=== PATIENT | female | born 1980 | race Caucasian/White ===

== ENCOUNTER 2016-09-23 18:50 | Emergency (ER) | payer OTHER ==
[2016-09-23] MEDS ORDERED: HYDROcodone/ACETAMIN 5-325 MG* 1 TAB PO ONE ×2 (19:36→21:18)
[2016-09-23] MEDS ORDERED: Ketorolac INJ* 60 MG/2 ML VIAL IM ONE (19:44)
[2016-09-23 20:39] VITALS: BP 99/55
--- NOTE | 2016-09-23 20:52 | RAD ---
Indication: Back pain, dysuria. CT of the abdomen and pelvis was performed without oral or IV contrast administration. Coronal and sagittal reconstructed images were obtained. The lung bases demonstrate no pleural fluid, nodules or masses. Heart is of normal size without evidence of pericardial effusion. Liver is normal in size. No focal lesions or intrahepatic ductal dilatation is noted. The gallbladder demonstrates no calcified gallstones. No pericholecystic fluid or wall thickening is identified. Common duct is not dilated. Pancreas demonstrates no mass or pancreatic duct dilatation. No adrenal lesions are noted. The kidneys demonstrate multiple renal calculi. Left kidney demonstrates multiple renal calculi the largest in the lower pole of left kidney measuring 5 mm. There is a calculi in the distal ureter just above the ureteropelvic junction up to 2 mm. There is fullness of the left renal collecting system. The right kidney demonstrates nonobstructing calculi in the right kidney. No dilated loops of bowel are noted. No retroperitoneal adenopathy is noted. The colon is filled with stool. The uterus and ovaries are unremarkable. Aorta and inferior vena cava are unremarkable. No dilated small bowel or colon is filled with stool. IMPRESSION: MULTIPLE LEFT RENAL CALCULI WITH AN ADDITIONAL CALCULI IN THE LEFT URETEROVESICULAR JUNCTION MEASURING 2 MM WITH MILD FULLNESS OF THE LEFT RENAL COLLECTING SYSTEM. TINY CALCULI ARE NOTED IN THE RIGHT KIDNEY.
[2016-09-23] MEDS ORDERED: Tamsulosin CAP* 0.4 MG PO ONE (21:18)
--- NOTE | 2016-10-09 10:49 | UC ---
Remington Hou Matthew, scribed for La NenaSangeeta DO on 09/23/16 at 1945 . Back Pain HPI - HPI Summary HPI Summary: A 36 y/o female presents to [facility] [place] with sudden constant left lower back pain since 18:00. The pain is described as sharp and radiates from the left lower back into the left flank. The pain started after the patient voided. Associated symptoms include nausea, increased urgency, and cough. The patient denies dysuria, fever, chills, chest pain, SOB, vomiting, headache, rashes, and sore throat. The patient states that she drank copious amounts of water today. FHx of kidney stones. - History of Current Complaint Chief Complaint: UCBackPain Stated Complaint: LOWER BACK & ABD PAIN Time Seen by Provider: 09/23/16 19:11 Hx Obtained From: Patient Hx Last Menstrual Period: 09/17/16 ?: No Onset/Duration: Sudden Onset, Lasting Hours, Still Present Timing: Constant Severity Initially: Moderate Severity Currently: Moderate Pain Intensity: 10 Pain Scale Used: 0-10 Numeric Back Pain: Is Discrete @ - left lower back, Radiates To - left flank Character: Sharp Aggravating: Nothing Alleviating: Nothing Associated Signs And Symptoms: Positive: Flank Pain - LT, Other - increased urgency, nausea, cough. Negative: Swelling, Redness, Bruising, Fever, Weakness , Numbness, Tingling, Bladder Incontinence, Bowel Incontinence, Weight Loss - Allergies/Home Medications Allergies/Adverse Reactions: Allergies Allergy/AdvReac Type Severity Reaction Status Date / Time No Known Allergies Allergy Verified 10/08/16 12:20 PMH/Surg Hx/FS Hx/Imm Hx Previously Healthy: Yes Endocrine History Of: Denies: Diabetes, Thyroid Disease Cardiovascular History Of: Denies: Cardiac Disorders, Hypertension Respiratory History Of: Denies: COPD, Asthma GI/ History Of: Denies: Ulcer - Surgical History Surgical History: Yes Surgery Procedure, Year, and Place: LE2005. Appendectomy - Family History Known Family History: Positive: Hypertension - Social History Lives: With Family Alcohol Use: Occasionally Substance Use Type: None Smoking Status (MU): Never Smoked Tobacco Have You Smoked in the Last Year: No Review of Systems Constitutional: Negative Skin: Negative Eyes: Negative ENT: Negative Respiratory: Cough Cardiovascular: Negative Gastrointestinal: Other - Nausea Genitourinary: Urgency - increased Motor: Negative Neurovascular: Negative Musculoskeletal: Negative Neurological: Negative Psychological: Negative All Other Systems Reviewed And Are Negative: Yes Physical Exam Triage Information Reviewed: Yes Appearance: Well-Appearing, Well-Nourished, Pain Distress - moderate Vital Signs: Initial Vital Signs Temp 98.4 F 09/23/16 19:00 Pulse 94 09/23/16 19:00 Resp 24 09/23/16 19:00 BP 95/50 09/23/16 19:00 Pulse Ox 100 09/23/16 19:00 Vital Signs Reviewed: Yes Eyes: Positive: Conjunctiva Clear. Negative: Discharge ENT: Positive: Hearing grossly normal. Negative: Muffled/hoarse voice Neck: Positive: Supple, Nontender Respiratory: Positive: Lungs clear, Normal breath sounds, No respiratory distress, No accessory muscle use Cardiovascular: Positive: RRR, No Murmur Abdomen Description: Positive: Nontender, Soft, CVA Tenderness (L), Other: - tenderness to palpation of left cva; kidney punch deferred. Negative: CVA Tenderness (R), Distended, Guarding Bowel Sounds: Positive: Present Musculoskeletal Exam: Normal Neurological: Positive: Alert, Muscle Tone Normal Psychological: Positive: Age Appropriate Behavior Skin Exam: Normal, Other - dry, normal color Diagnostics - Radiology CT A/P Xray Interpretation: Positive (See Comments) - IMPRESSION: MULTIPLE LEFT RENAL CALCULI WITH AN ADDITIONAL CALCULI IN THE LEFT URETEROVESICULAR JUNCTION MEASURING 2 MM WITH MILD FULLNESS OF THE LEFT RENAL COLLECTING SYSTEM. TINY CALCULI ARE NOTED IN THE RIGHT KIDNEY. Radiology Interpretation Completed By: Radiologist Back Pain Course/Dx - Differential Dx/Diagnosis Differential Diagnosis/HQI/PQRI: Renal Colic, Strain Provider Diagnoses: kidney stone Discharge - Discharge Plan Condition: Stable Disposition: HOME Patient Education Materials: Tamsulosin (By mouth), Kidney Stones (ED) Referrals: Bhavani Trejo MD [Primary Care Provider] - (Follow up in 3-5 days. Follow up sooner in ED if pain worsens or new symptoms develop.) Redd Asher MD [Medical Doctor] - (Follow up in 1-2 weeks.) Additional Instructions: ORAL NARCOTIC MEDICATION: You have been given a prescription for pain control. This medication is a narcotic. It's best taken with food, as nausea can result if taken on an empty stomach. Don't operate machinery or drive within six hours of taking this medication. Do not combine this medicine with alcohol, or with any medication which can cause sedation (such as cold tablets or sleeping pills) unless you get permission from the physician. Narcotics tend to cause constipation. If possible, drink plenty of fluids and eat a diet high in fiber and fruits. The documentation as recorded by the delorisibRemington singh Matthew accurately reflects the service I personally performed and the decisions made by me, Sangeeta Deutsch DO.
== END 2016-09-23 21:39 | disposition home or self-care (01) ==
LOC: UCEAST 18:50
DX: N20.0 Calculus of kidney (principal); Z32.02 Encounter for pregnancy test, result negative
CPT/HCPCS: 74176; 81003; 84702; 87086; 96372; 99212; G0463; J1885

== ENCOUNTER 2017-10-08 20:25 | Inpatient (IN) | payer OTHER ==
[2017-10-08] MEDS ORDERED: Penicillin G Potassium IV* 5,000,000 UNITS in NS 0.9% 100 ML* 100 ML IVPB ONE (22:12)
[2017-10-08] MEDS ORDERED: Betamethasone INJ* 6 MG/ML 5 ML VIAL (30 MG) IM ONE (22:12)
--- NOTE | 2017-10-08 22:26 | HP ---
General Information - General Information Maternal Age: 37 Grav: 2 Para: 0 SAB: 1 IEA: 0 Estimated Due Date: 11/13/17 Determined By: Early Ultrasound Gestational Age in Weeks and Days: 34 Weeks and 6 Days Maternal Blood Type and Rh: A Positive - Results this Serology/RPR Result: Non-Reactive Rubella Result: Non-Immune HBsAg Result: Negative HIV Result: Negative Past Medical History Delivery History: See Records Pertinent Past Medical History: See Records - depression/anxiety - on sertraline Pertinent Past Surgical History: See Records Pertinent Family History: See Records - Antepartal Records Antepartal Records: Reviewed, Uncomplicated Review of Systems Constitutional: Comfortable CV Complaint: No Respiratory: Shortness of Breath: No Gastrointestinal: No Nausea/Vomiting Genitourinary: Leaking Fluid Musculoskeletal: Contractions - mild, irregular Movement: Normal Exam Allergies/Adverse Reactions: Allergies No Known Allergies Allergy (Verified 10/08/16 12:20) Lab Values - Entire Visit: Laboratory Tests 10/08/17 20:47 Vag Amniotic Fld Detect Positive - Measurements Height: 4 ft 11 in Weight: 195 lb Weight in lbs: 195 Body Mass Index (BMI): 39.4 Pre- Weight: 162 lb Weight Gained This : 33 lbs and 0 ozs - Exam Abdomen: No Upper Quadrant Pain Breast: Breast Exam Deferred Extremities: Edema - mild b/l Heart: Normal Rhythm/Heart Sounds HEENT: No Significant Findings - Cervical Exam /-2 - Abdominal Exam Abdomen Exam: Non-Tender, Fundal Height Consistent with Dates - Membranes Membrane Status: SROM - Ultrasound/Biophysical Profile Ultrasound Status: Bedside Exam Ultrasound Findings: vertex EFM Findings - External Monitor Findings Baseline Heart Rate: 135 External Monitor Findings: Accelerations Present, No Pattern of Variable or Late Decelerations, Variability Moderate, Baseline Stable Contractions: Regular - q2-4, Mild, < 45 Seconds Assessment/Plan - Reason for Visit Reason for Visit: PROM - Obstetrical Risk Factors Obstetrical Risk Factors: GBS Unknown, - Plan Plan: Early Labor, Antibiotic Prophylaxis, Steroids - Date/Time of Admission Date of Admission: 10/08/17 Time of Admission: 10:30
[2017-10-08 23:19] LABS: ABS Basophils 0.1 10^3/ul (0-0.2); ABS Eosinophils 0.2 10^3/ul (0-0.6); ABS Lymphocytes 3.3 10^3/ul (1.0-4.8); ABS Monocytes 0.9 10^3/ul (0-0.8); ABS Neutrophils 10.7 10^3/ul (1.5-7.7); ABS Nucleated RBC 0 10^3/ul; Eosinophil % 1.1 % (0-6); Hematocrit 37 % (35-47); Hemoglobin 12.6 g/dl (12.0-16.0); Lymphocyte % 22.1 % (25-47); Mean Corpuscular HGB Conc 34 g/dl (31-36); Mean Corpuscular Hemoglobin 30 pg (27-31); Mean Corpuscular Volume 87 fL (80-97); Mean Platelet Volume 10.4 um3 (7.4-10.4); Nucleated Red Blood Cells % 0.1; Platelet Count 216 10^3/ul (150-450); Red Blood Count 4.26 10^6/ul (4.0-5.4); Red Cell Distribution Width 15 % (10.5-15); White Blood Count 15.1 10^3/ul (3.5-10.8)
[2017-10-09] MEDS: Oxytocin in LR* 20 UNITS/1,000 ML BAG IVPB SCH ×2 (02:04→17:02)
[2017-10-09] MEDS: Penicillin G Potassium IV* 2,500,000 UNITS in NS 0.9% 100 ML* 100 ML IVPB SCH ×5 (03:10→19:50)
[2017-10-09] MEDS ORDERED: Famotidine TAB* 20 MG PO PRN (03:19)
[2017-10-09] MEDS ORDERED: Promethazine INJ(RESTRICTED)* 25 MG/ML 1 ML VIAL IV ONE (04:15)
[2017-10-09] MEDS ORDERED: Nalbuphine* 20 MG/ML 1 ML VIAL IV ONE (04:15)
[2017-10-09 04:22] LABS: Urine Protein Negative (Negative)
[2017-10-09] MEDS ORDERED: Promethazine INJ(RESTRICTED)* 25 MG/ML 1 ML VIAL ONE (04:36)
[2017-10-09] MEDS ORDERED: Nalbuphine* 20 MG/ML 1 ML VIAL ONE (04:36)
[2017-10-09] MEDS ORDERED: NS 0.9% 100 ML* 100 ML ONE (19:41)
[2017-10-09] MEDS ORDERED: Nalbuphine* 20 MG/ML 1 ML VIAL IV PRN (21:26)
[2017-10-09] MEDS ORDERED: Promethazine INJ(RESTRICTED)* 25 MG/ML 1 ML VIAL IV PRN (21:27)
[2017-10-09] MEDS ORDERED: Betamethasone INJ* 6 MG/ML 5 ML VIAL (30 MG) IM ONE (22:45)
[2017-10-09] MEDS ORDERED: Oxytocin in LR* 20 UNITS/1,000 ML BAG IVPB SCH (23:00)
[2017-10-10] MEDS: Penicillin G Potassium IV* 2,500,000 UNITS in NS 0.9% 100 ML* 100 ML IVPB SCH ×7 (01:00→23:34)
[2017-10-10] MEDS ORDERED: Misoprostol TAB* 100 MCG PO ONE ×3 (08:25→19:49)
[2017-10-10] MEDS ORDERED: Sertraline* 25 MG TAB PO SCH (09:00)
[2017-10-10] MEDS: Sertraline* 25 MG TAB PO SCH ×2 (15:40→23:48)
[2017-10-10] MEDS ORDERED: Promethazine INJ(RESTRICTED)* 25 MG/ML 1 ML VIAL IV PRN (23:03)
[2017-10-10] MEDS ORDERED: Nalbuphine* 20 MG/ML 1 ML VIAL IV PRN (23:03)
[2017-10-10] MEDS ORDERED: Promethazine INJ(RESTRICTED)* 25 MG/ML 1 ML VIAL ONE (23:22)
[2017-10-11] MEDS: Penicillin G Potassium IV* 2,500,000 UNITS in NS 0.9% 100 ML* 100 ML IVPB SCH ×2 (03:40→13:45)
[2017-10-11] MEDS ORDERED: OBEPIDURAL* 250 ML EPIDURAL ONE (06:29)
[2017-10-11] MEDS ORDERED: Sodium Citrate/Citric Acid* 15 ML UDC PO PRN (07:14)
[2017-10-11] MEDS ORDERED: Famotidine TAB* 20 MG PO PRN (07:14)
[2017-10-11] MEDS ORDERED: Phenylephrine IV* 40 MCG/ML 10 ML SYRINGE IV PUSH PRN ×2 (07:14)
[2017-10-11] MEDS ORDERED: OBEPIDURAL* 250 ML EPIDURAL SCH (08:00)
[2017-10-11] MEDS ORDERED: Clindamycin 900 MG IVPREMIX(* 900 MG/50 ML SDV IV SCH (12:54)
[2017-10-11] MEDS ORDERED: GENTAMICIN ADULT IVPB SCH (13:30)
[2017-10-11] MEDS ORDERED: NS 0.9% IVPB SCH (13:30)
[2017-10-11] MEDS: Ampicillin IV* 2 GM in NS 0.9% 100 ML* 100 ML IVPB SCH ×2 (13:37→20:07)
[2017-10-11] MEDS: GENTAMICIN ADULT IVPB SCH ×2 (14:11→22:04)
[2017-10-11] MEDS: NS 0.9% IVPB SCH ×2 (14:11→22:04)
[2017-10-11 14:30] LABS: Hematocrit 29 % (35-47); Mean Corpuscular HGB Conc 34 g/dl (31-36); Mean Corpuscular Hemoglobin 30 pg (27-31); Mean Corpuscular Volume 87 fL (80-97); Platelet Count 168 10^3/ul (150-450); Red Blood Count 3.37 10^6/ul (4.0-5.4); Red Cell Distribution Width 15 % (10.5-15); White Blood Count 19.8 10^3/ul (3.5-10.8)
[2017-10-11 14:34] LABS: Urine Appearance Clear; Urine Blood 3+ (Negative); Urine Color Straw; Urine Ketones Negative (Negative); Urine Protein Negative (Negative); Urine Specific Gravity 1.004 (1.010-1.030); Urine Urobilinogen Negative (Negative)
[2017-10-11] MEDS ORDERED: Acetaminophen TAB* 325 MG PO ONE (14:43)
[2017-10-11] MEDS ORDERED: Acetaminophen TAB* 325 MG ONE (14:43)
[2017-10-11 14:47] LABS: ABS Basophils 0 10^3/ul (0-0.2); ABS Eosinophils 0 10^3/ul (0-0.6); ABS Lymphocytes 1.9 10^3/ul (1.0-4.8); ABS Monocytes 1.7 10^3/ul (0-0.8); ABS Neutrophils 16.1 10^3/ul (1.5-7.7); ABS Nucleated RBC 0 10^3/ul; Eosinophil % 0 % (0-6); Lymphocyte % 9.7 % (25-47); Nucleated Red Blood Cells % 0.1
[2017-10-11 14:54] LABS: Uric Acid 4.4 mg/dL (2.3-6.6)
[2017-10-11] MEDS ORDERED: Gentamicin ADULT per pharmacy 1 NOTE MISC FOLLOW UP PRN (16:19)
[2017-10-11] MEDS ORDERED: Misoprostol TAB* 200 MCG PR ONE (18:52)
[2017-10-11] MEDS ORDERED: Acetaminophen TAB* 325 MG PO PRN (18:52)
[2017-10-11] MEDS ORDERED: Witch Hazel PAD* JAR TOPICAL PRN (18:52)
[2017-10-11] MEDS ORDERED: Glycerin ADULT SUPP PR PRN (18:52)
[2017-10-11] MEDS ORDERED: Dibucaine 1% 28.35 GM TUBE PR PRN (18:52)
[2017-10-11] MEDS ORDERED: Oxytocin in LR* 20 UNITS/1,000 ML BAG IVPB SCH (19:00)
[2017-10-11] MEDS ORDERED: Simethicone TAB* 80 MG TAB.CHEW PO SCH (21:00)
[2017-10-11] MEDS: Docusate CAP* 100 MG PO SCH (21:32)
[2017-10-11] MEDS: Sertraline* 25 MG TAB PO SCH (21:32)
[2017-10-11] MEDS: Ibuprofen TAB* 600 MG PO PRN (21:32)
[2017-10-12] MEDS: Ampicillin IV* 2 GM in NS 0.9% 100 ML* 100 ML IVPB SCH ×3 (03:44→16:40)
[2017-10-12] MEDS: Ibuprofen TAB* 600 MG PO PRN ×3 (03:44→20:12)
[2017-10-12] MEDS: NS 0.9% IVPB SCH ×2 (05:45→14:17)
[2017-10-12] MEDS: GENTAMICIN ADULT IVPB SCH ×2 (05:45→14:17)
[2017-10-12 09:02] LABS: ABS Basophils 0.1 10^3/ul (0-0.2); ABS Eosinophils 0 10^3/ul (0-0.6); ABS Lymphocytes 3.3 10^3/ul (1.0-4.8); ABS Monocytes 1.3 10^3/ul (0-0.8); ABS Neutrophils 15.1 10^3/ul (1.5-7.7); ABS Nucleated RBC 0 10^3/ul; Eosinophil % 0.1 % (0-6); Hematocrit 27 % (35-47); Hemoglobin 9.2 g/dl (12.0-16.0); Lymphocyte % 16.5 % (25-47); Mean Corpuscular HGB Conc 34 g/dl (31-36); Mean Corpuscular Hemoglobin 30 pg (27-31); Mean Corpuscular Volume 87 fL (80-97); Mean Platelet Volume 9.9 um3 (7.4-10.4); Nucleated Red Blood Cells % 0.1; Platelet Count 164 10^3/ul (150-450); Red Cell Distribution Width 15 % (10.5-15); White Blood Count 19.8 10^3/ul (3.5-10.8)
[2017-10-12] MEDS: Ferrous Gluconate TAB* 324 MG TAB PO SCH ×2 (10:08→20:12)
[2017-10-12] MEDS: Docusate CAP* 100 MG PO SCH ×3 (10:08→20:12)
[2017-10-12] MEDS: Sertraline* 25 MG TAB PO SCH (20:12)
[2017-10-13 04:52] VITALS: BP 125/74
[2017-10-13] MEDS: Ibuprofen TAB* 600 MG PO PRN (08:09)
[2017-10-13] MEDS: Docusate CAP* 100 MG PO SCH (08:09)
[2017-10-13] MEDS: Ferrous Gluconate TAB* 324 MG TAB PO SCH (08:09)
== END 2017-10-13 13:00 | disposition home or self-care (01) | DRG 560 ==
LOC: MCHOBOUT 20:25 → MCHOB 21:18
PROVIDERS: ADMIT Obstetrics & Gynecology; ATTEND Obstetrics & Gynecology
PROC: 10907ZC Drainage of Amniotic Fluid, Therapeutic from Products of Conception, Via Natural or Artificial Opening (ICD-10-PCS; principal; 2017-10-11)
PROC: 10H07YZ Insertion of Other Device into Products of Conception, Via Natural or Artificial Opening (ICD-10-PCS; 2017-10-11)
PROC: 4A1H74Z Monitoring of Products of Conception, Cardiac Electrical Activity, Via Natural or Artificial Opening (ICD-10-PCS; 2017-10-11)
PROC: 0KQM0ZZ Repair Perineum Muscle, Open Approach (ICD-10-PCS; 2017-10-11)
PROC: 10D07Z3 Extraction of Products of Conception, Low Forceps, Via Natural or Artificial Opening (ICD-10-PCS; 2017-10-11)
DX: O42.113 Preterm premature rupture of membranes, onset of labor more than 24 hours following rupture, third trimester (principal); O99.344 Other mental disorders complicating childbirth; F32.9 Major depressive disorder, single episode, unspecified; F41.9 Anxiety disorder, unspecified; Z3A.34 34 weeks gestation of pregnancy; Z37.0 Single live birth; O66.5 Attempted application of vacuum extractor and forceps; Z87.442 Personal history of urinary calculi; O70.1 Second degree perineal laceration during delivery; O90.81 Anemia of the puerperium; O76 Abnormality in fetal heart rate and rhythm complicating labor and delivery; O62.1 Secondary uterine inertia; O75.81 Maternal exhaustion complicating labor and delivery
CPT/HCPCS: 36415; 80053; 81003; 81015; 84112; 84156; 84550; 85025; 86850; 86900; 86901; 87070; 87086; 88307; A9270-GY; J0290; J0702; J1580; J2300; J2540; J2550; S0191

== ENCOUNTER 2019-02-01 12:26 | Emergency (ER) | payer OTHER ==
[2019-02-01 12:36] VITALS: BP 139/86
--- NOTE | 2019-02-01 12:47 | UC ---
Cardiac HPI - HPI Summary HPI Summary: 38-year-old female presents with chest pain. Patient states chest pain became last night while she was trying to go to sleep as located in her bilateral chest feels tight associated with shortness of breath. Patient states that lasted for several hours until she fell asleep. Patient states it began again this morning about 1 hour ago and is constant. No history of cardiac problems in the past, no recent stress test, no history of heart failure or PE. Patient is not on control and does not smoke. No history of blood clots in her family or heart problems in her family. Patient states she has history of panic attacks but these usually self subside. - History of Current Complaint Chief Complaint: UCCardiac Stated Complaint: TROUBLE BREATHING Time Seen by Provider: 02/01/19 12:30 Hx Last Menstrual Period: 02/01/19 Pain Intensity: 6 - Allergy/Home Medications Allergies/Adverse Reactions: Allergies Allergy/AdvReac Type Severity Reaction Status Date / Time No Known Allergies Allergy Verified 02/01/19 12:36 Home Medications: Home Medications NK [No Home Medications Reported] 02/01/19 [History Confirmed 02/01/19] PMH/Surg Hx/FS Hx/Imm Hx Previously Healthy: Yes GI/ History: Other - precancerous cervical cells Psychological History: Depression - Surgical History Surgical History: Yes Surgery Procedure, Year, and Place: LEEP 2006. Appendectomy - Family History Known Family History: Positive: Hypertension Negative: Cardiac Disease - Social History Alcohol Use: Occasionally Substance Use Type: None Smoking Status (MU): Never Smoked Tobacco Have You Smoked in the Last Year: No - Immunization History Most Recent Influenza Vaccination: unk Most Recent Pneumonia Vaccination: none Review of Systems All Other Systems Reviewed And Are Negative: Yes Respiratory: Positive: Shortness Of Breath Cardiovascular: Positive: Chest Pain Physical Exam - Summary Physical Exam Summary: Constitutional: Well-developed, Well-nourished, Alert. (-) Distressed Skin: Warm, Dry HENT: Normocephalic; Atraumatic Eyes: Conjunctiva normal Neck: Musculoskeletal ROM normal neck. (-) JVD, (-) Stridor Cardio: Rhythm regular, rate normal, Heart sounds normal; Intact distal pulses; Radial pulses are 2+ and symmetric. (-) Murmur Pulmonary/Chest wall: Effort normal. (-) Respiratory distress, (-) Wheezes, (-) Rales Abd: Soft, (-) tenderness, (-) Distension, (-) Guarding, (-) Rebound Musculoskeletal: (-) Edema Lymph: (-) Cervical adenopathy Neuro: Alert, Oriented x3 Psych: Mood and affect Normal Vital Signs: Initial Vital Signs Temp 36.9 C 02/01/19 12:28 Pulse 82 02/01/19 12:28 Resp 18 02/01/19 12:28 BP 139/86 02/01/19 12:28 Pulse Ox 98 02/01/19 12:28 Diagnostics - EKG Cardiac Rate: NL Summary of EKG Findings: 12:20 PM sinus at a rate of 79, normal axis, normal [place] and QTc, no ischemic changes - Assessment/Plan Course Of Treatment: 38-year-old female presents with chest pain Chest Pain DDX: The patient is well appearing, with stable vitals. Given the patient's clinical presentation, highest on differential is atypical CP but also includes ACS, PE. Patient advised that she should go to the emergency Department as we have limited resources to address chest pain in the urgent care setting. Patient had an EKG that was sinus with no ischemic changes. Patient to be accompanied by to emergency department. - Clinical Impression Provider Diagnosis: Chest pain Discharge - Sign-Out/Discharge Documenting (check all that apply): Patient Departure All imaging exams completed and their final reports reviewed: No Studies - Discharge Plan Condition: Stable Disposition: HOME-RECOMMEND TO ED Patient Education Materials: Chest Pain (ED) Referrals: Bhavani Trejo MD [Primary Care Provider] - Additional Instructions: You were seeen at urgent care for chest pain. We recommend that you go to the emergency department for further evaluation. Please seek medical attention or go to the emergency department for any worsening or concerning symptoms. Please follow up with her primary care doctor in 2-3 days. It was a pleasure taking care of you today. - Billing Disposition and Condition Condition: STABLE Disposition: Home-Recommend to ED
== END 2019-02-01 12:47 | disposition home health service (06) ==
LOC: UCEAST 12:26
DX: R07.9 Chest pain, unspecified (principal); F32.9 Major depressive disorder, single episode, unspecified
CPT/HCPCS: 93005; 99212; G0463

== ENCOUNTER 2019-02-01 13:06 | Emergency (ER) | payer OTHER ==
[2019-02-01 14:28] LABS: ABS Basophils 0.1 10^3/ul (0-0.2); ABS Eosinophils 0.2 10^3/ul (0-0.6); ABS Lymphocytes 3.5 10^3/ul (1.0-4.8); ABS Monocytes 0.5 10^3/ul (0-0.8); ABS Neutrophils 6.8 10^3/ul (1.5-7.7); Hematocrit 41 % (35-47); Hemoglobin 13.5 g/dL (12.0-16.0); Lymphocyte % 31.5 %; Mean Corpuscular HGB Conc 33 g/dL (31-36); Mean Corpuscular Hemoglobin 27 pg (27-31); Mean Corpuscular Volume 82 fL (80-97); Nucleated Red Blood Cells % 0.1; Platelet Count 275 10^3/uL (150-450); Red Blood Count 4.99 10^6 /uL (3.70-4.87); Red Cell Distribution Width 14 % (10-15); White Blood Count 11.2 10^3/uL (3.5-10.8)
[2019-02-01 14:49] LABS: INR 1.07 (0.82-1.09)
[2019-02-01 14:56] LABS: Albumin 4.2 g/dL (3.2-5.2); Albumin/Globulin Ratio 1.2 (1-3); BUN/Creatinine Ratio 17.7 (8-20); Calcium 9.5 mg/dL (8.6-10.3); EGFR African American 131.8 (>60); EGFR Non-African American 108.9 (>60); Globulin 3.4 g/dL (2-4); Potassium 3.9 mmol/L (3.5-5.0); Total Bilirubin 0.3 mg/dL (0.2-1.0); Total Protein 7.6 g/dL (6.4-8.9)
--- NOTE | 2019-02-01 15:17 | ED ---
HPI Chest Pain - HPI Summary HPI Summary: A 38 y/o female accompanied by her presents to [facility] with a chief complaint of chest pain since a panic attack today at 11:30. She says that she feels a heaviness. Her pain started when she was just sitting at her desk at work. She says that she frequently has panic attacks, but she claims that this one felt different. She says usually she felt heaviness and SOB, but this time she had some tightness in her throat. At triage she rated her pain as a 5/10 in severity. She says that her pain is better than it was a few hours ago. She says that last night she had a similar episode that resolved overnight. She says that this pain is still present, and her episodes usually do not last this long. She denies taking any medications. She denies any recent travel, but states that they recently bought a house. - History of Current Complaint Chief Complaint: EDChestWallPain Time Seen by Provider: 02/01/19 14:50 Hx Obtained From: Patient Hx Last Menstrual Period: 02/01/19 Onset/Duration: Started Hours Ago, Still Present Timing: Constant Initial Severity: Moderate Current Severity: Moderate Pain Intensity: 5 Pain Scale Used: 0-10 Numeric Chest Pain Location: Diffuse Chest Pain Radiates: No Character: Heaviness Aggravating Factor(s): Nothing Alleviating Factor(s): Nothing Associated Signs and Symptoms: Negative: Fever - Allergy/Home Medications Allergies/Adverse Reactions: Allergies Allergy/AdvReac Type Severity Reaction Status Date / Time No Known Allergies Allergy Verified 02/01/19 12:36 PMH/Surg Hx/FS Hx/Imm Hx Endocrine/Hematology History: Denies: Hx Diabetes, Hx Thyroid Disease Cardiovascular History: Denies: Hx Hypertension, Hx Pacemaker/ICD Respiratory History: Denies: Hx Asthma, Hx Chronic Obstructive Pulmonary Disease (COPD) GI History: Denies: Hx Ulcer History: Denies: Hx Renal Disease Sensory History: Denies: Hx Hearing Aid Psychiatric History: Reports: Hx Anxiety, Hx Depression - on Zoloft Denies: Hx Panic Disorder - Cancer History Cancer Type, 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 Appendectomy Infectious Disease History: No Infectious Disease History: Denies: Hx Clostridium Difficile, Hx Hepatitis, Hx Human Immunodeficiency Virus (HIV), Hx of Known/Suspected MRSA, Hx Shingles, Hx Tuberculosis, Hx Known/ Suspected VRE, Hx Known/Suspected VRSA, History Other Infectious Disease, Traveled Outside the [place] in Last 30 Days - Family History Known Family History: Positive: Hypertension Negative: Cardiac Disease - Social History Alcohol Use: Occasionally Substance Use Type: Reports: None Smoking Status (MU): Never Smoked Tobacco Have You Smoked in the Last Year: No Review of Systems Negative: Fever Positive: Chest Pain All Other Systems Reviewed And Are Negative: Yes Physical Exam - Summary Physical Exam Summary: Appearance: The patient is well-nourished in no acute distress and in no acute pain. Skin: The skin is warm and dry and skin color reflects adequate perfusion. HEENT: The head is normocephalic and atraumatic. The pupils are equal and reactive. The conjunctivae are clear and without drainage. Nares are patent and without drainage. Mouth reveals moist mucous membranes and the throat is without erythema and exudate. The external ears are intact. The ear canals are patent and without drainage. The tympanic membranes are intact. Neck: The neck is supple with full range of motion and non-tender. There are no carotid bruits. There is no neck vein distension. Respiratory: Chest is non-tender. Lungs are clear to auscultation and breath sounds are symmetrical and equal. Cardiovascular: Heart is regular rate and rhythm. There is no murmur or rub auscultated. There is no peripheral edema and pulses are symmetrical and equal. Abdomen: The abdomen is soft and non-tender. There are normal bowel sounds heard in all four quadrants and there is no organomegaly palpated. Musculoskeletal: There is no back tenderness noted. Extremities are non-tender with full range of motion. There is good capillary refill. There is no peripheral edema or calf tenderness elicited. Neurological: Patient is alert and oriented to person, place and time. The patient has symmetrical motor strength in all four extremities. Cranial nerves are grossly intact. Deep tendon reflexes are symmetrical and equal in all four extremities. Psychiatric: The patient has an appropriate affect and does not exhibit any anxiety or depression. Triage Information Reviewed: Yes Vital Signs On Initial Exam: Initial Vitals Temp Pulse Resp BP Pulse Ox 97.7 F 86 16 126/77 100 02/01/19 13:08 02/01/19 13:08 02/01/19 13:08 02/01/19 13:08 02/01/19 13:08 Vital Signs Reviewed: Yes Diagnostics - Vital Signs Vital Signs Temp Pulse Resp BP Pulse Ox 02/01/19 13:08 97.7 F 86 16 126/77 100 - Laboratory Lab Results: Lab Results 02/01/19 02/01/19 02/01/19 Range/Units 13:54 13:54 13:54 WBC 11.2 H (3.5-10.8) 10^3/uL RBC 4.99 H (3.70-4.87) 10^6 /uL Hgb 13.5 (12.0-16.0) g/dL Hct 41 (35-47) % MCV 82 (80-97) fL MCH 27 (27-31) pg MCHC 33 (31-36) g/dL RDW 14 (10-15) % Plt Count 275 (150-450) 10^3/uL MPV 9.0 (7.4-10.4) fL Neut % (Auto) 61.1 % Lymph % (Auto) 31.5 % Blaine % (Auto) 4.8 % Eos % (Auto) 2.0 % Baso % (Auto) 0.6 % Absolute Neuts (auto) 6.8 (1.5-7.7) 10^3/ul Absolute Lymphs (auto) 3.5 (1.0-4.8) 10^3/ul Absolute Monos (auto) 0.5 (0-0.8) 10^3/ul Absolute Eos (auto) 0.2 (0-0.6) 10^3/ul Absolute Basos (auto) 0.1 (0-0.2) 10^3/ul Absolute Nucleated RBC 0.0 10^3/ul Nucleated RBC % 0.1 INR (Anticoag Therapy) 1.07 (0.82-1.09) D-Dimer, Quantitative < 200 (Less Than 230) ng/mL Sodium 137 (135-145) mmol/L Potassium 3.9 (3.5-5.0) mmol/L Chloride 106 (101-111) mmol/L Carbon Dioxide 23 (22-32) mmol/L Anion Gap 8 (2-11) mmol/L BUN 11 (6-24) mg/dL Creatinine 0.62 (0.51-0.95) mg/dL Est GFR ( Amer) 131.8 (>60) Est GFR (Non-Af Amer) 108.9 (>60) BUN/Creatinine Ratio 17.7 (8-20) Glucose 87 (70-100) mg/dL Calcium 9.5 (8.6-10.3) mg/dL Total Bilirubin 0.30 (0.2-1.0) mg/dL AST 15 (13-39) U/L ALT 12 (7-52) U/L Alkaline Phosphatase 72 (34-104) U/L Troponin I 0.00 (<0.04) ng/mL Total Protein 7.6 (6.4-8.9) g/dL Albumin 4.2 (3.2-5.2) g/dL Globulin 3.4 (2-4) g/dL Albumin/Globulin Ratio 1.2 (1-3) Result Diagrams: 02/01/19 13:54 02/01/19 13:54 Lab Statement: Any lab studies that have been ordered have been reviewed, and results considered in the medical decision making process. - Radiology CXR Radiology Interpretation Completed By: Radiologist Summary of Radiographic Findings: NO ACTIVE CARDIOPULMONARY DISEASE. ED physician has reviewed this imaging report. - EKG 13:08 Cardiac Rate: NL - 88 bpm EKG Rhythm: Sinus Rhythm Summary of EKG Findings: Normal sinus rhythm, normal ST, no ectopy, no STEMI Chest Pain Course/Dx - Course Course Of Treatment: Ms. Montoya has a history of panic attacks. She had an episode today while at work of chest pressure and shortness of breath. These are similar symptoms to her panic attacks however they're lasting much longer. She still has them some mildly when I see her. She was kept on the monitor while labs were obtained including a delayed troponin and d-dimer and were negative. I think this likely does represent more of her anxiety and recommended close follow-up. - Diagnoses Provider Diagnoses: Chest pain Discharge - Sign-Out/Discharge Documenting (check all that apply): Patient Departure - DC Patient Received Moderate/Deep Sedation with Procedure: No - Discharge Plan Condition: Stable Disposition: HOME Patient Education Materials: Chest Pain (DC) Referrals: Bhavani Trejo MD [Primary Care Provider] - (2-3 days) Additional Instructions: Follow up with your PCP in 2-3 days. Return to the ED if you experience any new or worsening symptoms. - Billing Disposition and Condition Condition: STABLE Disposition: Home - Attestation Statements Document Initiated by Kristiibe: Yes Documenting Scribe: Everett Iraheta Provider For Whom Adrian is Documenting (Include Credential): Shay Adam MD Scribe Attestation: Everett Hou, scribed for Shay Adam MD on 02/01/19 at 2158. Scribe Documentation Reviewed: Yes Provider Attestation: The documentation as recorded by the Everett hamilton accurately reflects the service I personally performed and the decisions made by me, Shay Adam MD Status of Scribe Document: Viewed
[2019-02-01 17:18] VITALS: BP 116/82
== END 2019-02-01 17:22 | disposition home or self-care (01) ==
LOC: ED 13:06
DX: R07.9 Chest pain, unspecified (principal)
CPT/HCPCS: 36415; 71046; 80053; 84484; 85025; 85379; 85610; 93005; 99283

== ENCOUNTER 2019-06-13 12:19 | Emergency (ER) | payer OTHER ==
[2019-06-13 13:09] VITALS: BP 128/79
[2019-06-13 14:05] LABS: Influenza A Molecular NEGATIVE (Negative); Influenza B Molecular NEGATIVE (Negative)
--- NOTE | 2019-06-13 14:48 | UC ---
Respiratory Complaint HPI - HPI Summary HPI Summary: 2 DAYS OF COUGH, CONGESTION, SINUS PRESSURE. STATES SHE HAD FEVER ABOUT 89 INITIALLY BUT NONE SINCE LAST NIGHT. - History of Current Complaint Chief Complaint: UCGeneralIllness Stated Complaint: FLU LIKE SYMPTOMS Time Seen by Provider: 06/13/19 13:43 Hx Obtained From: Patient, Family/Clinical Rehabilitation Aide - Hx Last Menstrual Period: 06/11/19 Onset/Duration: Gradual Onset, Lasting Days, Still Present Timing: Constant Severity Initially: Moderate Severity Currently: Moderate Pain Intensity: 0 Pain Scale Used: 0-10 Numeric Character: Cough: Nonproductive Aggravating Factors: Nothing Alleviating Factors: Nothing Associated Signs And Symptoms: Positive: Fever, Chills, URI, Nasal Congestion, Sinus Discomfort. Negative: Dyspnea - Allergies/Home Medications Allergies/Adverse Reactions: Allergies Allergy/AdvReac Type Severity Reaction Status Date / Time No Known Allergies Allergy Verified 06/13/19 13:04 Home Medications: Home Medications Sertraline* [Zoloft*] 25 mg PO DAILY 06/13/19 [History Confirmed 06/13/19] PMH/Surg Hx/FS Hx/Imm Hx Previously Healthy: Yes - Surgical History Surgical History: Yes Surgery Procedure, Year, and Place: [facility] 2005. Appendectomy - Family History Known Family History: Positive: Hypertension Negative: Cardiac Disease - Social History Alcohol Use: Occasionally Substance Use Type: None Smoking Status (MU): Never Smoked Tobacco Have You Smoked in the Last Year: No - Immunization History Most Recent Influenza Vaccination: unk Most Recent Pneumonia Vaccination: none Review of Systems All Other Systems Reviewed And Are Negative: Yes Constitutional: Positive: Fever, Chills, Fatigue ENT: Positive: Nasal Discharge, Sinus Congestion Respiratory: Positive: Cough Cardiovascular: Positive: Negative Gastrointestinal: Positive: Negative Physical Exam Triage Information Reviewed: Yes Appearance: Well-Appearing, No Pain Distress, Well-Nourished Vital Signs: Initial Vital Signs Temp 98.8 F 06/13/19 13:05 Pulse 94 06/13/19 13:05 Resp 16 06/13/19 13:05 BP 128/79 06/13/19 13:05 Pulse Ox 98 06/13/19 13:05 Laboratory Tests 06/13/19 13:53 Influenza A (Rapid) Negative Influenza B (Rapid) Negative Vital Signs Reviewed: Yes Eyes: Positive: Conjunctiva Clear ENT: Positive: Hearing grossly normal, Pharynx normal, TMs normal Neck: Positive: Supple, Nontender, No Lymphadenopathy Respiratory Exam: Normal Cardiovascular Exam: Normal Abdomen Description: Positive: Soft Musculoskeletal: Positive: No Edema Neurological: Positive: Alert Psychological: Positive: Age Appropriate Behavior Skin: Negative: Rashes Respiratory Course/Dx - Course Course Of Treatment: FLU SWAB NEGATIVE. LIKELY VIRAL ETIOLOGY OF SYMPTOMS. CONSERVATIVE MANAGEMENT AT HOME. REST, HYDRATE, OTC MEDS NEEDED. RECOMMEND AFRIN. WILL TRY TESSALON PERLES FOR COUGH. FOLLOW-UP IF NEEDED. - Differential Dx/Diagnosis Provider Diagnosis: Upper respiratory infection Discharge ED - Sign-Out/Discharge Documenting (check all that apply): Patient Departure All imaging exams completed and their final reports reviewed: No Studies - Discharge Plan Condition: Stable Disposition: HOME Prescriptions: Benzonatate CAP* [Tessalon CAP*] 1 - 2 cap PO TID PRN #30 cap PRN Reason: Cough Patient Education Materials: Upper Respiratory Infection (ED) Referrals: Bhavani Trejo MD [Primary Care Provider] - If Needed Additional Instructions: FLU SWAB NEGATIVE. YOUR SYMPTOMS ARE LIKELY VIRALLY MEDIATED AND SHOULD RESOLVE ON THEIR OWN WITH TIME. NO INDICATION FOR ANTIBIOTICS AT PRESENT. REST, HYDRATE , OTC MEDS NEEDED. WILL TREAT WITH PREDNISONE TO HELP WITH AIRWAY INFLAMMATION AND COUGH MEDICINE. SEEK FOLLOW-UP IF YOU ARE NOT IMPROVING OVER THE NEXT 1-2 WEEKS. USE OTC AFRIN FOR NASAL CONGESTION. 2 SPRAYS IN EACH NOSTRIL TWICE DAILY NEEDED. DO NOT USE FOR MORE THAN 3-4 DAYS IN A ROW TO PREVENT DEVELOPING REBOUND CONGESTION. - Billing Disposition and Condition Condition: STABLE Disposition: Home
== END 2019-06-13 14:27 | disposition home or self-care (01) ==
LOC: UCEAST 12:19
DX: J06.9 Acute upper respiratory infection, unspecified (principal)
CPT/HCPCS: 99212; G0463

== ENCOUNTER 2019-06-14 07:45 | Emergency (ER) | payer OTHER ==
--- NOTE | 2019-06-14 08:37 | UC ---
Respiratory Complaint HPI - HPI Summary HPI Summary: CHIEF COMPLAINT and HPI: This is a 38 y/o with continued cough. Dx'd possible viral illness yesterday. Feels dizzy in CCC. Transferred to room 4. This condition began approximately 5 days ago with a cough that has increased in frequency. The patient also complains of mild right posterior thorax pain. VITAL SIGNS & SaO2 REVIEWED. Tachycardic and lightheaded. pulse ox is 97%. NURSES NOTE REVIEWED. "seen here yesterday sx worsening fever,cough wants a cxr " - History of Current Complaint Chief Complaint: UCGeneralIllness Stated Complaint: RECHECK FEVER COUGH Time Seen by Provider: 06/14/19 08:22 Hx Last Menstrual Period: 06/11/19 Pain Intensity: 5 - Allergies/Home Medications Allergies/Adverse Reactions: Allergies Allergy/AdvReac Type Severity Reaction Status Date / Time No Known Allergies Allergy Verified 06/14/19 07:55 PMH/Surg Hx/FS Hx/Imm Hx - Additional Past Medical History Additional PMH: PAST MEDICAL HISTORY- CHRONIC and RECURRENT HEALTH PROBLEM LIST REVIEWED. Information relevant to present complaint: patient is status post appendectomy; she is on Zoloft. She has no significant history of hospitalizations. She denies previous pneumonia. VISIT HISTORY REVIEWED. MEDICATIONS & ALLERGIES REVIEWED. HYPERTENSION STATUS: not hypertensive FAMILY HISTORY: . Patient denies significant family illness. Patient denies family history of: hypertension, cardiovascular disease, stroke, diabetes, cancer. SOCIAL HISTORY: Smoker:nonsmoker Home: lives with2 children and her . Previously Healthy: Yes - Surgical History Surgical History: Yes Surgery Procedure, Year, and Place: [facility] 2005. Appendectomy - Family History Known Family History: Positive: Hypertension Negative: Cardiac Disease - Social History Alcohol Use: Occasionally Substance Use Type: None Smoking Status (MU): Never Smoked Tobacco Have You Smoked in the Last Year: No - Immunization History Most Recent Influenza Vaccination: unk Most Recent Pneumonia Vaccination: none Review of Systems All Other Systems Reviewed And Are Negative: Yes Constitutional: Positive: Fever Skin: Positive: Negative Eyes: Positive: Negative ENT: Positive: Negative Respiratory: Positive: Cough. Negative: Shortness Of Breath Cardiovascular: Positive: Negative Gastrointestinal: Positive: Negative Genitourinary: Positive: Negative Is Patient Immunocompromised?: No Physical Exam - Summary Physical Exam Summary: Appearance: The patient is well-appearing, is in no pain or distress, and is well-nourished. Eyes: Conjunctiva are clear. Pupils are equal and reactive to light and accommodation. Extra ocular muscle movement is intact. ENT: The hearing is grossly normal, the pharynx is normal, and the TMs are normal. There is no muffled or hoarse voice. No stridor. Neck: The neck is supple and there is no lymphadenopathy. Respiratory: The chest is non-tender to palpation and without crepitus. The lungs are clear, there are normal breath sounds, and there is no respiratory distress. No wheezes,; rales noted right lung base. Cardiovascular: Heart sounds reveal a regular rate and rhythm. There are no clicks, rubs or murmurs. There are no carotid bruits or thrills. Circulation is grossly intact. Abdomen: The abdomen is soft and nontender. There is no organomegaly. Bowel sounds are present and within normal limits. No point tenderness at McBurneys point. No CVA tenderness. Musculoskeletal: Strength is intact. The patient moves all extremities. Neurological: The patient is alert. Motor and sensory are examination grossly intact. Speech is normal. Psychological: The patient displays age appropriate behavior, and is conversant. GCS=15. Skin: Negative for rashes. Re-check 10:30 am: patient is sitting, walking; feels more comfortable; vital signs rechecked and documented; respiratory rate and BP are within normal limits ; rales noted right lung base, as before. Triage Information Reviewed: Yes Vital Signs: Initial Vital Signs Temp 100 F 06/14/19 07:51 Pulse 110 06/14/19 07:51 Resp 20 06/14/19 07:51 BP 00/00 06/14/19 07:51 Pulse Ox 97 06/14/19 07:51 Respiratory Course/Dx - Course Course Of Treatment: Patient with five days of cough; seen yesterday; returns to [facility] requesting [facility]. Right lung rales; x ray shows right middle lobe pneumonia. Given ceftriaxone here, one gm. Started on Augmentin and Zithromax. Will follow up with me in two days if any questions or concerns. Or go to ED. Follow up with her provider in 10 days. Patient comfortable sitting and walking; VS within normal limits prior to discharge. x ray reading: Airspace consolidation in the distribution of the RIGHT middle lobe and possibly involving the anterior basal segment of the RIGHT lower lobe. Negative for volume loss. Negative for pleural effusion or pneumothorax. The heart, pulmonary vasculature, and mediastinal contours are unremarkable. IMPRESSION: RIGHT basilar pneumonia. - Differential Dx/Diagnosis Differential Diagnosis/HQI/PQRI: Bronchitis, Lower Resp Infection, Pulmonary Embolism Provider Diagnosis: Pneumonia Discharge ED - Sign-Out/Discharge Documenting (check all that apply): Patient Departure All imaging exams completed and their final reports reviewed: Yes - Discharge Plan Condition: Stable Disposition: HOME Prescriptions: Amoxicillin/Clavulanate TAB* [Augmentin TAB 875*] 875 mg PO BID #20 tab MDD 2 Azithromycin TAB* [Zithromax TAB*] 250 mg PO DAILY #6 tab MDD 2 Patient Education Materials: Community Acquired Pneumonia (DC) Forms: *Work Release Referrals: Bhavani Trejo MD [Primary Care Provider] - Additional Instructions: WE DISCUSSED: PLEASE SEEK CARE AT THE EMERGENCY DEPARTMENT IF SYMPTOMS WORSEN OR IF NEW SYMPTOMS DEVELOP. FOLLOW UP WITH YOUR PRIMARY CARE PHYSICIAN IF CONDITION CONTINUES BEYOND 3 DAYS WITHOUT IMPROVEMENT. YOUR DIAGNOSIS IS: PNEUMONIA OF YOUR RIGHT BOTTOM LUNG. YOUR PRESCRIPTION RECOMMENDATION IS: AUGMENTIN, TWICE A DAY PLUS A COURSE OF AZITHROMYCIN OTHER INSTRUCTIONS: TEA AND HONEY; STEAM; WARM SHOWERS TO CHEST; REST; HYDRATE. CALL YOUR DOCTOR FOR FOLLOW UP IN 10 DAYS. KEEP CLOSE WATCH ON YOUR CONDITION; WATCH FOR ANY INCREASED CHEST PAIN, TEMPERATURE OR SHORTNESS OF BREATH. FOR PAIN AND/OR SLEEP: For pain: Ibuprofen (Motrin and other brand names) 400-600mg PLUS acetaminophen (Tylenol and other brand names) 500mg - 1000mg every 8 hours. - Billing Disposition and Condition Condition: STABLE Disposition: Home
[2019-06-14] MEDS ORDERED: cefTRIAXone VIAL(*) 1,000 MG VIAL IM ONE (09:32)
[2019-06-14] MEDS ORDERED: Lidocaine 2% PF * 5 ML VIAL INJ ONE (09:40)
[2019-06-14] MEDS ORDERED: Lidocaine 1% INJ* 10 MG/ML 30 ML SDV INJ ONE (09:50)
[2019-06-14] MEDS ORDERED: Lidocaine 1% MPF ** 5 ML VIAL ONE (09:53)
[2019-06-14 10:29] VITALS: BP 125/65
== END 2019-06-14 10:52 | disposition home or self-care (01) ==
LOC: UCEAST 07:45
DX: J18.9 Pneumonia, unspecified organism (principal)
CPT/HCPCS: 71046; 96372; 99212; G0463; J0696